=== PATIENT | male | born 1945 | race Caucasian/White ===

== ENCOUNTER 2022-04-18 08:08 | Day surgery (SDC) | payer MEDICARE, MEDICAID ==
[~2022-04-18] VITALS: Ht 167.6 cm; Wt 101.8 kg
[~2022-04-18 08:08] MED LIST: SODIUM CHLORIDE 0.9% 1,000 ML ONE
[2022-04-18] MEDS ORDERED: SODIUM CHLORIDE 0.9% 1,000 ML IV ONE (08:30)
[2022-04-18] MEDS ORDERED: DIAZEPAM 5 MG TABLET ONE (09:14)
[2022-04-18] MEDS ORDERED: DiphenhydrAMINE HCL 50 MG CAPSULE ONE (09:14)
[2022-04-18] MEDS ORDERED: FERR325T27 PO (10:16)
[2022-04-18] MEDS ORDERED: ALBU8HFA IH (10:16)
[2022-04-18] MEDS ORDERED: ESCI10 PO (10:16)
[2022-04-18] MEDS ORDERED: ASPI-1444 PO (10:16)
[2022-04-18] MEDS ORDERED: PANT40TA54 PO (10:16)
[2022-04-18] MEDS ORDERED: PRIM50TA3 PO (10:16)
[2022-04-18] MEDS ORDERED: LAMO100 PO (10:16)
[2022-04-18] MEDS ORDERED: NITR0.4T52 SL (10:16)
[2022-04-18] MEDS ORDERED: CARV12.530 PO (10:16)
[2022-04-18] MEDS ORDERED: CYAN1TAB44 PO (10:16)
[2022-04-18] MEDS ORDERED: AMLO2.5T29 PO (10:16)
[2022-04-18] MEDS ORDERED: SIMV-46 PO (10:16)
[2022-04-18] MEDS ORDERED: DiphenhydrAMINE HCL 50 MG CAPSULE PO ONE (10:30)
[2022-04-18] MEDS ORDERED: ASPIRIN 81 MG CHEWABLE TABLET PO ONE (10:30)
[2022-04-18] MEDS ORDERED: DIAZEPAM 5 MG TABLET PO ONE (10:30)
[2022-04-18] MEDS ORDERED: SODIUM BICARBONATE 50 MEQ/50 ML VIAL ONE (12:56)
[2022-04-18] MEDS ORDERED: LIDOCAINE/PF 1% 30 ML VIAL ONE (12:56)
[2022-04-18] MEDS ORDERED: HEPARIN SODIUM 1000 UNITS/NS 1,000 ML ONE (12:57)
[2022-04-18] MEDS ORDERED: FLUT1BLS3 IH (12:59)
[2022-04-18] MEDS ORDERED: LEVE10006 PO (12:59)
[2022-04-18] MEDS ORDERED: LIFI1DRO OU (12:59)
[2022-04-18] MEDS ORDERED: BACL20TA PO (12:59)
[2022-04-18] MEDS ORDERED: MEMA1CAP3 PO (12:59)
[2022-04-18 13:36] VITALS: BP 160/68
[2022-04-18] MEDS ORDERED: IOHEXOL 300 MG/ML 50 ML VIAL ONE ×2 (13:43)
[2022-04-18] MEDS ORDERED: MIDAZOLAM HCL 2 MG/2 ML VIAL ONE (13:51)
[2022-04-18] MEDS ORDERED: FentaNYL CITRATE PF 100 MCG/2 ML VIAL ONE (13:51)
[2022-04-18] MEDS ORDERED: HydrALAZINE HCL 20 MG/ML VIAL ONE (14:14)
[2022-04-18] MEDS ORDERED: HEPARIN SODIUM 1000 UNITS/NS 1,000 ML IARTER ONE (14:15)
[2022-04-18] MEDS ORDERED: IOHEXOL 300 MG/ML 50 ML VIAL IARTER ONE (14:15)
[2022-04-18] MEDS ORDERED: LIDOCAINE 1% 30 ML/SOD BICARB 8.4% 4 ML SQ ONE (14:15)
[2022-04-18 14:21] VITALS: BP 161/66
[2022-04-18] MEDS ORDERED: HydrALAZINE HCL 20 MG/ML VIAL IVP ONE (14:30)
[2022-04-18] MEDS ORDERED: SODIUM CHLORIDE 0.9% 500 ML IV ONE (14:45)
== END 2022-04-18 18:15 | disposition home or self-care (01) ==
LOC: CATHLAB 08:08
PROVIDERS: ATTEND Internal Medicine Interventional Cardiology
DX: I25.10 Atherosclerotic heart disease of native coronary artery without angina pectoris (principal); I48.0 Paroxysmal atrial fibrillation; I10 Essential (primary) hypertension; E78.00 Pure hypercholesterolemia, unspecified; F32.9 Major depressive disorder, single episode, unspecified; I48.91 Unspecified atrial fibrillation; E78.5 Hyperlipidemia, unspecified; G47.30 Sleep apnea, unspecified; Z95.5 Presence of coronary angioplasty implant and graft; Z87.891 Personal history of nicotine dependence; Z98.890 Other specified postprocedural states
CPT/HCPCS: 93458; 93005; C1760; J1644; J0360; J3490 ×2; J7030; Q9967; J2250; J3010